=== PATIENT | male | born 1965 ===

== ENCOUNTER 2019-05-31 06:46 | Observation (INO) | payer OTHER ==
[2019-05-31] MEDS ORDERED: ASPIRIN 325 MG TAB PO ONE (06:51)
--- NOTE | 2019-05-31 07:02 | Emergency Department Report ---
ED Chest Pain HPI - General Chief Complaint: Chest Pain Stated Complaint: CHEST PAIN Time Seen by Provider: 05/31/19 07:02 Source: patient, RN notes reviewed Mode of arrival: Ambulatory Limitations: No Limitations - History of Present Illness Initial Comments: Patient is a 53-year-old gentleman. He is not known to myself previously. He is right-hand dominant. His primary care doctor is at [facility]. His top cutter is Dr. Raygoza. He has a past medical history of asthma. He presents to the ER today with a complaint of nontraumatic chest pain. The chest pain is left-sided, radiates to the neck, back, and left upper extremity. There is no vomiting, diaphoresis, or exertional shortness of breath. There are no DVT or pulmonary embolism risk factors. He is not sure if he is taking aspirin recently. As per discussion with his private aforementioned top cutter, he had an outpatient exercise stress test which was inconclusive for ischemic heart disease. The stress test was performed within the past month MD Complaint: chest pain -: Gradual, days(s) Onset: during rest Pain Location: substernal Pain Radiation: LUE, back, neck Consistency: intermittent Improves With: nothing Worsens With: nothing - Related Data On Oral Contraceptives: No Allergies Allergy/AdvReac Type Severity Reaction Status Date / Time No Known Allergies Allergy Verified 05/31/19 06:50 Heart Score - HEART Score History: Moderately suspicious EKG: Non-specific Age: 45-65 Risk factors: 1-2 risk factors Troponin: < normal limit HEART Score: 4 - Critical Actions Critical Actions: 4-6 pts:12-16.6% risk of adverse cardiac event. Should be admitted ED Review of Systems ROS: Stated complaint: CHEST PAIN Other details as noted in HPI Constitutional: denies: fever Eyes: denies: eye discharge ENT: denies: congestion Respiratory: denies: wheezing Cardiovascular: chest pain. denies: syncope Gastrointestinal: denies: nausea, vomiting, hematemesis, melena, hematochezia Genitourinary: denies: dysuria Musculoskeletal: back pain, myalgia Neurological: paresthesias ED Past Medical Hx - Past Medical History Previous Medical History?: Yes Hx Asthma: Yes - Surgical History Past Surgical History?: No - Social History Smoking Status: Never Smoker Substance Use Type: Alcohol ED Physical Exam - General Limitations: No Limitations General appearance: alert, in no apparent distress - Head Head exam: Present: atraumatic, normocephalic - Eye Eye exam: Present: normal appearance, EOMI. Absent: nystagmus - ENT ENT exam: Present: normal exam, normal orophraynx, mucous membranes moist, normal external ear exam - Neck Neck exam: Present: normal inspection, full ROM. Absent: tenderness, meningismus - Respiratory Respiratory exam: Present: normal lung sounds bilaterally. Absent: respiratory distress, rales, rhonchi, stridor - Cardiovascular Cardiovascular Exam: Present: normal rhythm, bradycardia, normal heart sounds. Absent: systolic murmur, diastolic murmur, rubs, gallop - GI/Abdominal GI/Abdominal exam: Present: soft. Absent: distended, tenderness, guarding, rebound, rigid, pulsatile mass - Rectal Rectal exam: Present: deferred - Extremities Exam Extremities exam: Present: normal inspection, full ROM, other (2+ pulses noted in the bilateral upper and lower extremities. There is no palpable cord. negative Homans sign. Muscular compartments are soft. The pelvis is stable.). Absent: pedal edema, calf tenderness - Back Exam Back exam: Present: normal inspection, full ROM. Absent: tenderness, CVA tenderness (R), CVA tenderness (L), paraspinal tenderness, vertebral tenderness - Neurological Exam Neurological exam: Present: alert, other (There is no facial droop. The tongue is midline. Extraocular movements are intact bilaterally. There is 5 out of 5 strength in bilateral upper and lower extremities. Sensation is intact to light touch bilateral upper and lower extremities. There is a normal gait.) - Psychiatric Psychiatric exam: Present: normal affect, normal mood - Skin Skin exam: Present: warm, dry, intact, normal color. Absent: rash ED Course Vital Signs 05/31/19 06:51 Temperature 97.5 F L Pulse Rate 56 L Respiratory 18 Rate Blood Pressure 121/82 O2 Sat by Pulse 99 Oximetry OLEKSANDR score - Oleksandr Score Age > 65: (0) No Aspirin use within the Past 7 Days: (0) No (Assuming that patient has not taken aspirin, he is not certain) 3 or more CAD Risk Factors: (0) No 2 or more Angina events in past 24 hrs: (1) Yes Known CAD with more than 50% Stenosis: (0) No Elevated Cardiac Markers: (0) No ST Deviation Greater than 0.5mm: (0) No OLEKSANDR Score: 1 ED Medical Decision Making - Lab Data Result diagrams: 05/31/19 07:19 05/31/19 07:19 Vital Signs 05/31/19 06:51 Temperature 97.5 F L Pulse Rate 56 L Respiratory 18 Rate Blood Pressure 121/82 O2 Sat by Pulse 99 Oximetry Lab Results 05/31/19 05/31/19 05/31/19 Range/Units 07:19 07:19 07:19 WBC 5.2 (4.5-11.0) K/mm3 RBC 4.89 (3.65-5.03) M/mm3 Hgb 12.9 (11.8-15.2) gm/dl Hct 39.1 (35.5-45.6) % MCV 80 L (84-94) fl MCH 26 L (28-32) pg MCHC 33 (32-34) % RDW 13.9 (13.2-15.2) % Plt Count 328 (140-440) K/mm3 Lymph % (Auto) 35.5 H (13.4-35.0) % Tyrrell % (Auto) 7.9 H (0.0-7.3) % Eos % (Auto) 2.4 (0.0-4.3) % Baso % (Auto) 0.7 (0.0-1.8) % Lymph # 1.8 (1.2-5.4) K/mm3 Tyrrell # 0.4 (0.0-0.8) K/mm3 Eos # 0.1 (0.0-0.4) K/mm3 Baso # 0.0 (0.0-0.1) K/mm3 Seg Neutrophils % 53.5 (40.0-70.0) % Seg Neutrophils # 2.8 (1.8-7.7) K/mm3 PT 13.7 (12.2-14.9) Sec. INR 1.04 (0.87-1.13) APTT 28.0 (24.2-36.6) Sec. Sodium 139 (137-145) mmol/L Potassium 4.3 (3.6-5.0) mmol/L Chloride 102.4 (98-107) mmol/L Carbon Dioxide 21 L (22-30) mmol/L Anion Gap 20 mmol/L BUN 10 (9-20) mg/dL Creatinine 1.0 (0.8-1.5) mg/dL Estimated GFR > 60 ml/min BUN/Creatinine Ratio 10 % Glucose 93 (75-100) mg/dL Calcium 9.1 (8.4-10.2) mg/dL Magnesium (1.7-2.3) mg/dL Total Creatine Kinase (55-170) units/L Troponin T < 0.010 (0.00-0.029) ng/mL 05/31/19 Range/Units 07:19 WBC (4.5-11.0) K/mm3 RBC (3.65-5.03) M/mm3 Hgb (11.8-15.2) gm/dl Hct (35.5-45.6) % MCV (84-94) fl MCH (28-32) pg MCHC (32-34) % RDW (13.2-15.2) % Plt Count (140-440) K/mm3 Lymph % (Auto) (13.4-35.0) % Tyrrell % (Auto) (0.0-7.3) % Eos % (Auto) (0.0-4.3) % Baso % (Auto) (0.0-1.8) % Lymph # (1.2-5.4) K/mm3 Tyrrell # (0.0-0.8) K/mm3 Eos # (0.0-0.4) K/mm3 Baso # (0.0-0.1) K/mm3 Seg Neutrophils % (40.0-70.0) % Seg Neutrophils # (1.8-7.7) K/mm3 PT (12.2-14.9) Sec. INR (0.87-1.13) APTT (24.2-36.6) Sec. Sodium (137-145) mmol/L Potassium (3.6-5.0) mmol/L Chloride (98-107) mmol/L Carbon Dioxide (22-30) mmol/L Anion Gap mmol/L BUN (9-20) mg/dL Creatinine (0.8-1.5) mg/dL Estimated GFR ml/min BUN/Creatinine Ratio % Glucose (75-100) mg/dL Calcium (8.4-10.2) mg/dL Magnesium 1.90 (1.7-2.3) mg/dL Total Creatine Kinase 125 (55-170) units/L Troponin T (0.00-0.029) ng/mL - EKG Data -: EKG Interpreted by Me EKG shows normal: sinus rhythm Rate: bradycardia - EKG Data When compared to previous EKG there are: previous EKG unavailable 05/31/19 08:52 Sinus rhythm, bradycardia, borderline leftward axis, there is low voltage, right bundle branch block, motion artifact, no prior EKG available for comparison. The EKG is abnormal. The EKG is not consistent with ST elevation myocardial infarction. - Radiology Data Radiology results: report reviewed, image reviewed X-ray of the chest is negative for acute disease - Medical Decision Making Differential diagnosis, including not limited to: Acute coronary syndrome, GERD, gastritis, hiatal hernia, pneumonia, radiculopathy, muscular pain Assessment and plan: 53-year-old gentleman with chest pain that radiates to the arm, neck and back, family history of heart disease in both parents, had inconclusive outpatient cardiac risk ratification, moderate risk for major adverse cardiac event as per heart score, who is not tachypneic, tachycardic, or hypoxic, with no DVT or pulmonary embolism risk factors, low risk by Wells criteria, equal pulses in the upper and lower extremities, x-ray of the chest unremarkable, unlikely to be pneumonia, pneumothorax or aortic disease. I have contacted his primary top cutter, Dr. Raygoza, who recommends admission for accelerated cardiac re-stratification. There is no request for Plavix or heparinization at this time. We will treat the patient's symptoms. Hospital physician, Dr. Gabriel Olvera to admit Critical care attestation.: If time is entered above; I have spent that time in minutes in the direct care of this critically ill patient, excluding procedure time. ED Disposition Clinical Impression: Abnormal EKG, Acute chest pain Disposition: OP ADMIT IP TO THIS HOSP Is pt being admited?: Yes Condition: Good Instructions: Chest Pain (ED) Referrals: PRIMARY CARE, [Primary Care Provider] - 3-5 Days
--- NOTE | 2019-05-31 07:14 | XRay Report ---
CHEST 1 VIEW INDICATION: Chest Pain. COMPARISON: None FINDINGS: Support devices: None. Heart: Within normal limits. Lungs/Pleura: No acute air space or interstitial disease. Additional findings: None. IMPRESSION: 1. No acute findings. Signer Name: Irving Fountain MD Signed: 05/31/2019 7:09 AM Workstation Name: [id number]
[2019-05-31 07:36] LABS: Basophils % (Auto) 0.7 % (0.0-1.8); Eosinophils # (Auto) 0.1 K/mm3 (0.0-0.4); Eosinophils % (Auto) 2.4 % (0.0-4.3); Hematocrit 39.1 % (35.5-45.6); Hemoglobin 12.9 gm/dl (11.8-15.2); Lymphocytes # (Auto) 1.8 K/mm3 (1.2-5.4); Lymphocytes % (Auto) 35.5 % (13.4-35.0); Mean Corpuscular HGB Conc 33 % (32-34); Mean Corpuscular Volume 80 fl (84-94); Monocytes # (Auto) 0.4 K/mm3 (0.0-0.8); Monocytes % (Auto) 7.9 % (0.0-7.3); Platelet Count 328 K/mm3 (140-440); Red Blood Count 4.89 M/mm3 (3.65-5.03); Red Cell Distribution Width 13.9 % (13.2-15.2)
[2019-05-31 07:46] LABS: INR 1.04 (0.87-1.13)
[2019-05-31] MEDS ORDERED: NITROGLYCERIN 0.4 MG TAB SUBL SL PRN (07:51)
[2019-05-31] MEDS ORDERED: FAMOTIDINE 20 MG TAB PO ONE (07:51)
[2019-05-31] MEDS ORDERED: ACETAMINOPHEN 325 MG TAB PO ONE (07:51)
[2019-05-31 07:52] LABS: BUN/Creatinine Ratio 10; Blood Urea Nitrogen 10 mg/dL (9-20); Calcium 9.1 mg/dL (8.4-10.2); Hemolysis Index 6
[2019-05-31] MEDS ORDERED: HEPARIN/NS 5000 UNIT/500ML 1,000 ML IR ONE (09:26)
[2019-05-31] MEDS ORDERED: VERAPAMIL 5 MG/2 ML INJ ONE (09:27)
[2019-05-31] MEDS ORDERED: SODIUM CHLORIDE 0.9% 500 ML 500 ML ONE (09:45)
[2019-05-31] MEDS ORDERED: SODIUM CHLORIDE 0.9% 500 ML 500 ML IV SCH (10:00)
[2019-05-31] MEDS: LIDOCAINE (2%) 20 MG/1 ML VIAL 20 ML MDV INFILTRATI ONE ×2 (10:11→10:19)
[2019-05-31] MEDS: HEPARIN 10,000 UNITS/10 ML VIAL ONE ×2 (10:11→10:21)
[2019-05-31] MEDS: MIDAZOLAM 2 MG/2 ML INJ ONE ×2 (10:11→10:16)
[2019-05-31] MEDS: fentaNYL 100 MCG/2 ML INJ ONE ×2 (10:11→10:16)
[2019-05-31] MEDS: NITROGLYCERIN SYRINGE 3 ML ONE ×2 (10:12→10:21)
--- NOTE | 2019-05-31 10:42 | Event Note ---
Date: 05/31/19 Detailed cardiology consultation dictated. S/p LHC this AM which showed mild nonobstructive CAD. Add lipitor 20mg daily to home cardiac regimen. Currently stable cardiac status. Pt may discharge home from cardiology standpoint following completion of post-cath order set. Follow up in our [place] office with Dr. Sharla Raygoza on 06/13/2019 @ 1:00PM. Effie MARTINEZ NP / DR. Sharla RAYGOZA
--- NOTE | 2019-05-31 10:48 | History and Physical Report ---
History of Present Illness Date of examination: 05/31/19 Date of admission: 05/31/19 08:55 Chief complaint: Chest pain/abnormal stress test History of present illness: Very pleasant 53-year-old male patient follows with industrial health engineer Dr. Hill, had a stress test which was abnormal and Truck Greaser advised hospital admission for further evaluation with coronary ang iogram. At the time of presentation in the emergency room patient complained of mild chest pain, left sided, radiates to the back and neck and left upper extremity. Patient denies any shortness of breath nausea vomiting diaphoresis Patient denies orthopnea, paroxysmal nocturnal dyspnea First set of cardiac enzymes negative. Patient was evaluated by industrial health engineer and was taken to Block Setter [place] No other complaints Past History Past Medical History: hypertension. denies: diabetes, hyperlipidemia Past Surgical History: No surgical history Social history: denies: smoking, alcohol abuse, prescription drug abuse Family history: hypertension Medications and Allergies Allergies Allergy/AdvReac Type Severity Reaction Status Date / Time No Known Allergies Allergy Verified 05/31/19 06:50 Home Medications Medication Instructions Recorded Confirmed Last Taken Type Aspirin EC [Halfprin EC] 81 mg PO QDAY #30 tablet. 05/31/19 Unknown Rx AtorvaSTATin [Lipitor] 20 mg PO QHS #30 tablet 05/31/19 Unknown Rx Metoprolol Xl [Metoprolol 50 mg PO DAILY 05/31/19 05/31/19 05/30/19 History SUCCINATE ER TAB] 50 mg Active Meds: Active Medications Atorvastatin Calcium (Lipitor) 20 mg PO QHS SAMI Sodium Chloride (Nacl 0.9% 500 Ml) 500 mls @ 50 mls/hr IV DIRECT SAMI Stop: 05/31/19 19:59 Last Admin: 05/31/19 10:12 Dose: 100 mls Documented by: Nitroglycerin (Nitrostat) 0.4 mg SL .Q5MIN PRN PRN Reason: Chest Pain Last Admin: 05/31/19 09:08 Dose: 0.4 mg Documented by: Review of Systems Constitutional: no weight loss, no weight gain, no anorexia, no fatigue Cardiovascular: chest pain, no orthopnea, no palpitations Respiratory: no cough with sputum, no hemoptysis, no shortness of breath Gastrointestinal: no nausea, no vomiting Genitourinary Male: no dysuria, no hematuria Musculoskeletal: no myalgias, no arthritis Integumentary: no rash, no lesions Neurological: no weakness, no numbness Psychiatric: no anxiety, no depression Endocrine: no cold intolerance, no heat intolerance Hematologic/Lymphatic: no easy bruising, no easy bleeding Allergic/Immunologic: no urticaria, no allergic rhinitis Exam - Constitutional Vitals: Temp Pulse Resp BP Pulse Ox 97.9 F 58 L 16 122/81 100 05/31/19 07:15 05/31/19 09:15 05/31/19 09:15 05/31/19 09:15 05/31/19 09:15 General appearance: Present: mild distress, well-nourished - EENT Eyes: Present: PERRL, EOM intact - Neck Neck: Present: supple, normal ROM - Respiratory Respiratory effort: normal Respiratory: bilateral: diminished, negative: rales, rhonchi, wheezing - Cardiovascular Rhythm: regular Heart Sounds: Present: S1 & S2 - Extremities Extremities: no ischemia, No edema - Abdominal General gastrointestinal: Present: soft, non-tender, non-distended, normal bowel sounds - Integumentary Integumentary: Present: clear, warm - Musculoskeletal Musculoskeletal: strength equal bilaterally - Psychiatric Psychiatric: appropriate mood/affect, cooperative - Neurologic Neurologic: CNII-XII intact, moves all extremities Results - Labs CBC & Chem 7: 05/31/19 07:19 05/31/19 07:19 Labs: Abnormal lab results 05/31/19 05/31/19 Range/Units 07:19 07:19 MCV 80 L (84-94) fl MCH 26 L (28-32) pg Lymph % (Auto) 35.5 H (13.4-35.0) % Ness % (Auto) 7.9 H (0.0-7.3) % Carbon Dioxide 21 L (22-30) mmol/L Assessment and Plan --Chest pain/abnormal stress test; Advised aspirin, beta-blockers, statins Cardiology consult, coronary angiogram today Monitor closely and adjust management as needed --Hypertension; moderate control Continue metoprolol, and hydralazine --Dyslipidemia; statin --GERD: Pepcid --DVT prophylaxis; SCDs Follow cardiology evaluation recommendation Follow heart cath findings Heart cath is negative and patient is stable Will be discharged home today Plan of care reviewed with the patient and his nurse
--- NOTE | 2019-05-31 12:28 | Cardiac Catherization Report ---
CARDIAC CATHETERIZATION REFERRING PHYSICIAN: Dr. Clinton in ER. INDICATION FOR PROCEDURE: The patient is a very pleasant 53-year-old [place] male with recurrent chest pain, equivocal stress test in the office, presents to the Emergency Room, complaining of chest pain overnight, typical and atypical features, strong family history of premature heart disease. Options discussed with him including stress test, myocardial perfusion imaging, left heart catheterization and medical management. He would like to proceed with left heart catheterization. Risks, benefits, alternatives discussed prior to obtaining informed consent. PROCEDURE IN DETAIL: The patient was brought to medical laboratory technical officer in a postabsorptive state, prepped and draped in sterile fashion. Edward's test in right hand was normal. A 2 mL of 2% lidocaine used to anesthetize the right wrist. A standard 6-Liberian hydrophilic sheath used to cannulate the right radial artery via modified Seldinger technique. All exchanges performed to exchange a J-tip guidewire. JL3.5 catheter was used to engage the left main. No dampening or ventricularization. Cineangiography performed in multiple projections. JR4 catheter was used to cross the aortic valve under fluoroscopic guidance. Left ventriculography performed in 30 WHARTON and 30 ROMANIAN projections via hand injections, catheter flushed. Manual pullback performed with continuous pressure monitoring. Catheter used to engage the right coronary. No dampening or ventricularization. Cineangiography performed in all projections. Next, due to recurrent chest pain and hypertension, root aortography was performed in the ROMANIAN projection with power injector and a pigtail catheter. Catheter removed from the body of wire, sheath removed. Manual pressure used to achieve hemostasis. I directly supervised the administration of moderate sedation with fentanyl and Versed from 10:16 a.m. to 10:45 a.m. There were no immediate complications. DATA: Aortic pressure is 120/80, LV pressure is 120, LVEDP of 18 mmHg. The patient remained in normal sinus rhythm/sinus bradycardia throughout the procedure. Left heart reveals normal systolic performance with estimated ejection fraction of 55-60%. No evidence of aortic stenosis. CORONARY ANATOMY: This is a right dominant system. Right coronary is a moderate sized vessel, courses AV groove, distally bifurcates into posterior and posterolateral branch. Mild scattered luminal irregularities, maximal narrowing approximately 20% in the mid segment. No obstructive disease noted, OLEKSANDR 3 flow. Left main without significant disease, bifurcates left anterior descending and left circumflex. Left circumflex is moderate sized vessel, courses AV groove, mild luminal irregularities, maximal narrowing approximately 20% in the mid segment. No obstructive disease, OLEKSANDR 3 flow throughout. LAD is a moderate sized vessel, courses anterior intergroove, wraps around the apex. Mild scattered luminal irregularities with a maximal narrowing approximately 20% in the mid segment. OLEKSANDR 3 flow, no obstructive disease. Root aortography without evidence of dissection, penetrating aortic ulcer, or aortic insufficiency, normal great vessel anatomy, normal caliber. CONCLUSIONS: 1. Mild nonobstructive coronary artery disease in this right dominant system. 2. Normal left ventricular systolic performance, estimated ejection fraction of 55-60%. 3. No evidence of aortic stenosis. 4. Normal LVEDP. 5. Root aortography without evidence of dissection, penetrating aortic ulcer or aortic insufficiency. The patient is clinically stable, chest pain free. Aggressive primary and secondary prevention measures. Consider statin therapy. Continue aspirin, beta blockade. Follow up with me in the office. Standard radial care. Results of procedure explained in length to the patient and family. All questions and concerns were addressed. JOB# [id number] TAE/SHRADDHA
--- NOTE | 2019-05-31 13:35 | Discharge Summary ---
Providers - Providers Date of Admission: 05/31/19 08:55 Attending physician: ANIL COBB 05/31/19 08:25 Consult to Physician [CONS] Urgent Comment: DR GEO CAPELLAN W/DR CASTANO @0815 Consulting Provider: ARIADNA CASTANO Physician Instructions: Reason For Exam: cp 05/31/19 10:47 Consult to Cardiac Rehabilitation [CONS] Routine Reason For Exam: Cardiac Rehab Evaluation Primary care physician: BINDERY MACHINE TENDER Hospitalization Reason for admission: Chest pain Condition: Good Pertinent studies: Chest x-ray; no acute abnormality noted Procedures: Heart cath; mild nonobstructive coronary artery disease Hospital course: Very pleasant 53-year-old male patient follows with scullion chief Dr. Hill, had a stress test which was abnormal and Internist Medical Doctor Md advised hospital admission for further evaluation with coronary angiogram. At the time of presentation in the emergency room patient complained of chest pain sided, radiates to the back and neck and left upper extremity. Patient denies any shortness of breath nausea vomiting diaphoresis Patient denies orthopnea, paroxysmal nocturnal dyspnea First set of cardiac enzymes negative. Patient was evaluated and was taken to Chief Operating Officer And underwent coronary angiogram, which revealed mild nonobstructive coronary artery disease. EF 55 to 60% Patient was advised aspirin , Lipitor and to continue home medication metoprolol as before. Cleared by cardiology, patient is stable at discharge Discharge diagnosis; --Chest pain/angina; Mild coronary artery disease on heart cath Advised aspirin, beta-blockers, statins Follow-up with cardiology in 1 week to 10 days For further evaluation and management --Hypertension; moderate control Continue metoprolol, and hydralazine --Dyslipidemia; statin Cleared by cardiology for discharge And follow-up as outpatient for further evaluation Stable at discharge Disposition: DC-01 TO HOME OR SELFCARE Time spent for discharge: 32 min Core Measure Documentation - Palliative Care Palliative Care/ Comfort Measures: Not Applicable - Core Measures Any of the following diagnoses?: none Exam - Constitutional Vitals: Temp Pulse Resp BP Pulse Ox 98.4 F 58 L 16 125/88 99 05/31/19 11:37 05/31/19 13:15 05/31/19 13:15 05/31/19 13:15 05/31/19 13:15 General appearance: Present: no acute distress, well-nourished - EENT Eyes: Present: PERRL, EOM intact - Neck Neck: Present: supple, normal ROM - Respiratory Respiratory effort: normal Respiratory: bilateral: diminished, negative: rales, rhonchi, wheezing - Cardiovascular Rhythm: regular Heart Sounds: Present: S1 & S2 - Extremities Extremities: no ischemia, No edema - Abdominal General gastrointestinal: Present: soft, non-tender, non-distended, normal bowel sounds - Integumentary Integumentary: Present: clear, warm - Musculoskeletal Musculoskeletal: strength equal bilaterally - Psychiatric Psychiatric: appropriate mood/affect, agitated - Neurologic Neurologic: CNII-XII intact, moves all extremities Plan Activity: advance as tolerated Diet: other ( cardiac diet) Additional Instructions: Follow [facility] scullion chief office in [facility] with Dr. Sharla Castano on 06/13/2019 @ 1:00PM. Follow up with: PRIMARY MD JOHN [Primary Care Provider] - 3-5 Days ARIADNA CASTANO MD [Staff Physician] - 06/13/19 1:00 pm Prescriptions: Aspirin EC [Halfprin EC] 81 mg PO QDAY #30 tablet. AtorvaSTATin [Lipitor] 20 mg PO QHS #30 tablet
[2019-05-31 13:42] VITALS: BP 126/86
--- NOTE | 2019-05-31 14:57 | Consultation ---
ENDOCRINE CONSULTATION REFERRING PHYSICIAN: Dr. Clinton in the ER. REASON FOR CONSULTATION: Advice and opinion regarding recurrent chest pain. HISTORY OF PRESENT ILLNESS: The patient is a pleasant 53-year-old [place]ian-[place] gentleman with a history of hypertension, strong family history of premature heart disease, presents here with recurrent chest pain. States he feels tightness in his chest, strong family history. These symptoms are recurrent. Had a treadmill stress test last year, which was equivocal/mildly abnormal. He presents to the Emergency Room with recurrent chest pain. EKG is nonacute. Mild diaphoresis, occasional nausea. No syncope or presyncope, occasional palpitations. Nonsmoker, nondrinker, does not exercise, but is relatively active. No rashes, hematochezia, hemoptysis, melena. No abdominal pain, blurred vision or headache. PAST MEDICAL HISTORY: As aforementioned. ALLERGIES: No known drug, food, or environmental allergies. REVIEW OF SYSTEMS: As per HPI. FAMILY HISTORY: As aforementioned. PHYSICAL EXAMINATION: VITAL SIGNS: Blood pressure is 120/80, he is afebrile. Tele reveals sinus rhythm/sinus bradycardia. O2 sats 100% on room air. GENERAL: This is a middle-aged gentleman, in no apparent distress, oriented x 3. HEENT: Sclerae icteric. NECK: Supple. No mass or JVD. CHEST: Clear to auscultation bilaterally. Good air movement. CARDIOVASCULAR: Regular rhythm, S1, S2. ABDOMEN: Soft, nontender, nondistended. Normoactive bowel sounds in 4 quadrants. No mass or bruits. EXTREMITIES: No cyanosis, clubbing, edema. Good peripheral pulses. SKIN: Intact. No rashes. LABORATORY DATA: Unremarkable. ASSESSMENT AND PLAN: At this point, we have a 53-year-old gentleman with a strong family history, equivocal stress test, recurrent chest pain with typical and atypical features. I discussed the options with him. I would like to proceed with left heart catheterization. Risks, benefits, alternatives discussed at length prior to obtaining informed consent. Further plans contingent on these results. JOB# [id number] SBM/NTS
== END 2019-05-31 15:30 | disposition home or self-care (01) ==
LOC: ED 06:46 → 3A 08:55
PROVIDERS: ADMIT Internal Medicine; ATTEND Internal Medicine
DX: R07.89 Other chest pain (principal); R94.31 Abnormal electrocardiogram [ECG] [EKG]; I10 Essential (primary) hypertension; K21.9 Gastro-esophageal reflux disease without esophagitis; E78.5 Hyperlipidemia, unspecified; Z79.82 Long term (current) use of aspirin
CPT/HCPCS: 36415; 71045; 80048; 82550; 83735; 84484; 85025; 85610; 85730; 93005; 93010; 93458; 99285; C1894; G0378; J1644; J2250; J3010; J7040; Q9967